=== PATIENT | female | born 1950 | race Caucasian/White ===

== ENCOUNTER → 2023-04-15 | Outpatient (CLI) | payer OTHER ==
--- NOTE | 2023-04-15 14:25 | Diagnostic Imaging Report ---
INDICATION: Chronic hand pain. History of arthritis. COMPARISON: 03/28/2020. FINDINGS: Multiple radiographic views of the bilateral hands were obtained. Moderate osteoarthritic changes are noted, greatest involving the distal interphalangeal joint spaces. Note is made of prominent osteophyte formations, as well as gull-wing appearance. Findings suggest erosive component. No other periarticular erosions are seen. Joint spaces are otherwise maintained. Osseous structures are also otherwise intact. Mild osteoarthritic changes are also noted at the bilateral first carpometacarpal joint spaces. No unexpected radiopaque foreign bodies are seen. IMPRESSION: 1. Findings suggestive of erosive osteoarthritis. 2. No acute fracture or dislocation of either hand. Dictated by: Dictated on workstation # [id number]
== END ==
LOC: ORTHO 10:31
PROVIDERS: ATTEND Orthopaedic Surgery
DX: M79.641 Pain in right hand (principal); M79.642 Pain in left hand; G89.29 Other chronic pain; Z87.39 Personal history of other diseases of the musculoskeletal system and connective tissue
CPT/HCPCS: 20551; 99203